=== PATIENT | male | born 1965 | race Caucasian/White ===

== ENCOUNTER 2018-02-14 00:31 | Emergency (ER) | payer OTHER ==
[~2018-02-14] VITALS: Ht 200.7 cm; Wt 113.0 kg
[~2018-02-14 00:31] MED LIST: ASPIR 8181 MG PO; ASPIRIN EC81 M1 PO; COUMADIN 5 MG TA5 M1 PO; COUMADIN7.5 MG PO; ENOXAPARIN100 MG/11 SUBQ; HYDROCODON-ACE1 EAC7 PO; HYDROCODONE-AP1 EAC6 PO; KEFLEX500 MG PO; LUNESTA1 MG PO; LUNESTA3 MG PO; MULTIVITAMINS PO; NOHOMEMEDICATIONS; NORCO 5-325 TA1 EACH PO; OXYCODONE HCL 55 MG PO; PRILOSEC 20 MG20 MG PO; PROAIR HFA8.5 GM IH; ROCEPHIN 11 GM/1001 IV; SINGULAIR 10 MG10 M1 PO; TRAMADOL 50 MG50 MG PO; UNKNOWN ABX; XARELTO15 MG PO
[2018-02-14] MEDS ORDERED: COUMADIN 5 MG TA5 M1 PO (00:45)
[2018-02-14] MEDS ORDERED: GABAPENTIN 100100 MG PO (00:46)
[2018-02-14] MEDS ORDERED: SYMBICORT160 MCG/4. INH (00:46)
[2018-02-14] MEDS ORDERED: TYLENOL EXTRA500 MG PO (00:47)
[2018-02-14] MEDS ORDERED: VITAMIN D250000 UNIT PO (00:47)
[2018-02-14 01:28] LABS: ABSOLUTE EOSINOPHILS 0.1 thou/uL (0.0-0.7); ABSOLUTE LYMPHOCYTES 1.9 thou/uL (0.8-5.3); ABSOLUTE NEUTROPHILS 6.4 thou/uL (1.6-8.1); BASOPHILS 0.4 %; EOSINOPHILS 0.7 %; HEMATOCRIT 44.3 % (42.0-52.0); LYMPHOCYTES 20.4 %; MCHC 33.9 g/dL (28.0-37.0); MCV 91.2 fL (80.0-100.0); MONOCYTES 10.6 %; MPV 7.3 fl. (7.2-11.1); NUCLEATED RBCS 0 /100WBC; PLATELET COUNT* 192 thou/uL (150-400); POLYS 67.9 %; RBC 4.86 mil/uL (4.50-6.00); RDW-CV 13.4 % (10.5-14.5); WBC 9.4 thou/uL (4.0-11.0)
[2018-02-14 01:33] LABS: APTT 47.8 Seconds (25.0-31.3); INR 1.8; PROTIME 18.8 Seconds (9.20-11.50)
[2018-02-14 01:45] LABS: CALCIUM 8.6 mg/dL (8.5-10.1); CREATININE 0.9 mg/dL (0.6-1.3); POTASSIUM 3.9 mmol/L (3.5-5.1)
[2018-02-14 01:50] LABS: ALBUMIN 4.1 g/dL (3.4-5.0); TOTAL BILIRUBIN 0.3 mg/dL (<0.1-1.0); TOTAL PROTEIN 7.3 g/dL (6.4-8.2)
[2018-02-14] MEDS ORDERED: NORCO 5-325 TA1 EACH PO (04:22)
[2018-02-14] MEDS ORDERED: MEDROLDOSEPACK PO (04:22)
[2018-02-14 04:42] VITALS: BP 124/84
== END 2018-02-14 04:43 | disposition home or self-care (01) ==
LOC: M.ERS 00:31
PROVIDERS: Personal Emergency Response Attendant
DX: S83.8X2A Sprain of other specified parts of left knee, initial encounter (principal); K21.9 Gastro-esophageal reflux disease without esophagitis; Z88.8 Allergy status to other drugs, medicaments and biological substances; X58.XXXA Exposure to other specified factors, initial encounter; Y93.89 Activity, other specified; Y92.89 Other specified places as the place of occurrence of the external cause; Y99.8 Other external cause status

== ENCOUNTER 2018-02-19 15:56 | Inpatient (IN) | payer OTHER ==
[~2018-02-19] VITALS: Ht 200.7 cm; Wt 111.1 kg
[~2018-02-19 15:56] MED LIST changes: +GABAPENTIN 100100 MG PO; +MEDROLDOSEPACK PO; +SYMBICORT160 MCG/4. INH; +TYLENOL EXTRA500 MG PO; +VITAMIN D250000 UNIT PO
[2018-02-19 16:06] VITALS: BP 138/90
[2018-02-19 16:51] LABS: ABSOLUTE EOSINOPHILS 0.1 thou/uL (0.0-0.7); ABSOLUTE MONOCYTES 1.2 thou/uL (0.0-1.2); ABSOLUTE NEUTROPHILS 7.5 thou/uL (1.6-8.1); BASOPHILS 0.4 %; EOSINOPHILS 0.5 %; HEMATOCRIT 45.4 % (42.0-52.0); HEMOGLOBIN 15.8 gm/dL (14.0-18.0); LYMPHOCYTES 18.5 %; MCH 31.4 pg (26.0-34.0); MCHC 34.8 g/dL (28.0-37.0); MCV 90.2 fL (80.0-100.0); MONOCYTES 11.4 %; MPV 7.1 fl. (7.2-11.1); NUCLEATED RBCS 0 /100WBC; PLATELET COUNT* 234 thou/uL (150-400); POLYS 69.2 %; RBC 5.03 mil/uL (4.50-6.00); RDW-CV 13.1 % (10.5-14.5); WBC 10.9 thou/uL (4.0-11.0)
[2018-02-19 17:01] LABS: CALCIUM 8.9 mg/dL (8.5-10.1); CREATININE 0.9 mg/dL (0.6-1.3)
[2018-02-19 17:05] LABS: TOTAL BILIRUBIN 0.6 mg/dL (<0.1-1.0); TOTAL PROTEIN 7.8 g/dL (6.4-8.2)
[2018-02-19 18:03] LABS: ESR (SEDRATE) 4 mm/hr (0-20)
[2018-02-19 19:27] VITALS: BP 119/72
[2018-02-19 23:25] VITALS: BP 147/84
--- NOTE | 2018-02-19 23:44 | NUR ---
PATIENT ARRIVED ON UNIT FROM ER AT 1999. COMPLETED ADMISSION ASSESSMENT AND HISTORY. FALL CONTRACT SIGNED. VITAL SIGNS AND SPO2 STABLE. IV CLEAN, FLUIDS INFUSING. PAIN MEDS GIVEN, PAIN SUBSIDED. NEW ICE PACK PLACED ON KNEE. NPO AFTER MIDNIGHT. NO NAUSEA AND VOMITING. BLOOD THINNERS HELD PER ORDER. SCD'S PLACED. COMPLETED HOURLY ROUNDING. CALL LIGHT WITHIN REACH. WILL CONTINUE TO MONITOR.
[2018-02-20] VITALS: BP 135/88
--- NOTE | 2018-02-20 04:37 | NUR ---
PATIENT REMAINED ALERT AND ORIENTED X'S 4. VITAL SIGNS AND SPO2 STABLE. IV CLEAN, FLUIDS INFUSING. PAIN WELL CONTROLLED WITH PAIN MEDS PIGGYBACKED Q.2. BED SEED COLLECTOR PLACED. SCD'S IN PLACE. NPO. NO NAUSEA AND VOMITING. COMPLETED HOURLY ROUNDING. CALL LIGHT WITHIN REACH. WILL CONTINUE TO MONITOR.
[2018-02-20 07:45] VITALS: BP 125/83
[2018-02-20 10:03] LABS: INR 1.4; PROTIME 14.2 Seconds (9.20-11.50)
--- NOTE | 2018-02-20 15:23 | NUR ---
SPOKE WITH PT.AND . HIS PARENTS WERE AT BEDSIDE BUT PT. SAID THEY COULD STAY. INTRODUCED ROLE OF CM. HE LIVES AT HOME WITH HIS . IS USUALLY INDEPENDENT AT HOME. HE SAID THEY (THE DRS.) MAY HAVE TO DO SURGERY DEPENDING ON CXS. TOLD HIM I HAVE FAXED INFORMATION TO IV DRUG CO TO CHECK HIS BENEFITS, IN CASE HE WOULD NEED IV ANTIBIOTICS AT HOME. HE WAS OK WITH THIS. SAID HE HAD HOME IVAB BACK IN 2014. IN COMPUTER CHARTING IT SHOWS HE USED [facility] DRUG [facility].-NOW CALLED [facility]. CM FAXED FACE SHEET/H&P/MED LIST TO [facility] [phone]. CM WILL FOLLOW.
[2018-02-20 16:00] VITALS: BP 130/77
[2018-02-20 20:00] VITALS: BP 129/73
--- NOTE | 2018-02-20 20:28 | NUR ---
ALERT AND ORIENTED X4. IV IS PATENT AND INFUSING. PAIN BEING MANAGED WITH PO AND IV PAIN MEDICATION. DENIES NAUSEA. ALIYAH HOSE IN PLACE BILATERALLY. CHENG WRAP TO LEFT KNEE. VSS ON ROOM AIR. HOURLY ROUNDS HAVE BEEN MAINTAINED THROUGHOUT SHIFT CALL LIGHT IS WITHIN REACH. NURSING WILL CONTINUE TO MONITOR.
[2018-02-21 04:00] VITALS: BP 130/88
--- NOTE | 2018-02-21 06:23 | NUR ---
ASSESSMENT: PT REMAIN ALERT AND ORIENT TIMES FOUR. OLMOS. C/O PAIN IN LEFT KNEE S/P ASPIRATION. PRN PAIN MEDICATIONS GIVEN SCHEDULED. ALSO, C/O NAUSEA, ZOFRAN GIVEN TWICE THIS SHIFT WITH COMPLETE RELIEF. LEFT KNEE DRESSING D/I...NOTE A SMALL AMT OF DRY BLOOD UNDERNEATH DRESSING. UO ADEQUATE. HOLDING ANTICOAGS. NPO AT [place] FOR POSSIVE SURGERY PENDING CULTURE RESULTS. LAC IV PATENT WITH IVF INFUSING WITH OUT DIFFICULT. SLOW PROGRESS TOWARDS DC GOALS, WILL CONTINUE TO MONITOR.
[2018-02-21 08:20] VITALS: BP 124/83
--- NOTE | 2018-02-21 11:17 | NUR ---
CLARIFIED WITH DR. MABRY THAT DVT/PE HEPARIN THERAPY SHOULD BE ORDERED RATHER THAN CARDIOLOGY THERAPY.
[2018-02-21 12:53] VITALS: BP 135/88
--- NOTE | 2018-02-21 13:42 | NUR ---
HEPARIN GTT STARTED AT 1315. ORTHOPEDIC RESIDENT JUST CALLED STATING PATIENT WILL GO TO OR AT 1515. ORDERS TO TURN HEPARIN GTT OFF AT 1415. PAGED DR. MABRY TO NOTIFY HIM OF SURGERY- AWAITING RETURN CALL AT THIS TIME.
[2018-02-21 13:52] VITALS: BP 135/88
--- NOTE | 2018-02-21 13:55 | NUR ---
SAID TO STOP THE HEPARIN GTT, PATIENT WILL RESTART HOME ANTICOAGULATION 24 HOURS POST OP.
--- NOTE | 2018-02-21 14:02 | NUR ---
HEAPRIN GTT STOPPED AT THIS TIME
--- NOTE | 2018-02-21 15:33 | EKG ---
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
[2018-02-21 15:58] VITALS: BP 135/88
--- NOTE | 2018-02-21 16:18 | IN ---
[address] [address] INTERIM NOTE Name: BOBVEE Sima Room: [address] IN M.R.#: [id number] Admission: 02/19/18 Attend Phys: Dale Kim MD Discharge: Date of : 63 Report #: [id number] CC: [facility] physician/PCP Dale Kim DATE OF SERVICE: 02/20/2018 The patient is evaluated, chart and x-rays are reviewed. The patient developed what appears to be hemarthrosis to his left knee, which he has had a previous total knee replacement on 2013. He denies any significant trauma recently. He does have a lengthy history of trauma and debility. He has had a recent surgery to his low back, which I do not have records on at this time that states he had instrumentation. This was done approximately in 04/2017. Recently, he has had some epidurals he states in the last couple of months with no significant results, but some improvement. 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 On clinical exam today, he has no apparent infection from a clinical standpoint; however, he has been on steroids in the recent past and he is on antibiotics at this time. I therefore have to be very careful about his immune response, may be significantly diminished. The patient does not have significant white cell count elevation; however, we do not have any laboratory data back on his fluid aspiration from his left knee from yesterday available to us, not even the Gram stain as of yet. The fluid was described as blood indicating hemarthrosis. This may simply be hemarthrosis secondary to Coumadin usage and may not be an infection process at all. The patient did have some pain; however, this would be expected with the increased fluid and pressure in the knee. This gentleman does not tolerate pain well even after his total joint replacement. We had some difficulty getting him to move the knee and progress. The patient understands that if the laboratory data comes back as a potential infection, he will need an arthrotomy, possible irrigation, debridement, polyethylene exchange and Bactisure washout versus a staged revision total knee arthroplasty for septic total knee. Risks and complications of all these procedures including watchful waiting have been discussed in detail with the patient. He understands. He has some serious concerns regarding paying for the procedures and the hospital stay as he states he has been fired from his work back after his total joint due to inability to return to work because of his back and that he no longer has insurance other than [employer]. I have told him a very straightforward that I will do whatever I can do to help him in anyway and I will not be doing any of my treatments based upon insurance coverage, but what is the recommended best treatment for him and he can decide how he wished to proceed obviously at that point. All questions are answered. We will await the results of his testing. Thank you for allowing me to see this patient. <ELECTRONICALLY SIGNED> By: Maco Recinos DO 02/21/18 1618 0940 [id number] Recinos DO /meghan
--- NOTE | 2018-02-21 18:08 | NUR ---
PT WAS NPO FOR POTENTIAL PROCEDURE TODAY, PT WAS PUT ON HEPARIN DRIP, SURGERY THEN CALLED AND STATED THEY WERE GOING TO GO IN AND CLEAN. HEPARIN DRIP DISCONTINUED. PT HAS BEEN IN SURGERY SINCE AND HAS NOT RETURNED BACK TO THIS UNIT. WILL CONTINUE TO MONITOR.
[2018-02-21 19:55] VITALS: BP 117/81
[2018-02-21 22:14] LABS: BF RBC 3629094 /mm3; TOTAL CELL COUNT 5090 /mm3
[2018-02-21 22:19] LABS: TOTAL VOLUME 20 ml
[2018-02-21 22:54] LABS: BF EOSINOPHILS 1 %; BF LYMPHOCYTES 23 %; BF MONOCYTES 17 %; BF POLYS 59 %; SOURCE L.KNEE
[2018-02-21 22:56] LABS: COLOR BLOODY
[2018-02-21 22:57] LABS: CLARITY CLOUDY
[2018-02-22 00:08] VITALS: BP 121/74
[2018-02-22 04:03] LABS: HEMOGLOBIN 13.1 gm/dL (14.0-18.0)
[2018-02-22 04:09] VITALS: BP 132/79
--- NOTE | 2018-02-22 05:00 | NUR ---
PATIENT RETURNED TO UNIT FROM PACU AT 1954 IN STABLE CONDITION. ALL MEDS PER ORDERS. PATIENT REPORTING GOOD PAIN MANAGEMENT WITH BOTH ORAL AND IV MEDS PROVIDED. PREVENA WOUND VAC PRESENT AND FUNCTIONING. FLUIDS AND ANTIBIOTICS PER ORDERS. AFEBRILE. VITAL SIGNS STABLE. CONTINUE TO MONITOR.
--- NOTE | 2018-02-22 07:26 | NUR ---
CALL TO ANSWERING SERVICE OF DR. GUAN WITH RETURN CALL. UPDATE ON PATIENT STATUS AND CURRENT ANTIBIOTICS. DR. GUAN STATES HE WILL SEE PATIENT LATE MORNING. MESSAGE ALSO SENT TO HOSPITALIST REGARDING RESTART OF HOME ANTI-COAGULANTS.
--- NOTE | 2018-02-22 07:47 | NUR ---
CALLED BACK REGARDING ANTICOAGULATION, AND THE PLAN IS TO START IT TONIGHT.
[2018-02-22 09:40] VITALS: BP 115/79
[2018-02-22 16:57] VITALS: BP 137/76
--- NOTE | 2018-02-22 17:15 | NUR ---
DISCUSSED WITH EARLIER. HE SAID HE FEELS PT.WILL PROBABLY NOT NEED IV ANTIBIOTICS AT DISCHARGE. OBTAINED BENEFITS FROM [facility]. WILL NOT DISCUSS BENEFITS WITH PT.UNLESS IT TURNS OUT HE WILL NEED THEM.
--- NOTE | 2018-02-22 18:11 | NUR ---
PT REMAINED ALERT AND ORIENTED THIS SHIFT. PT HAS C/IO PAIN AND OXY IR GIVEN WELL SCHEDULED TRAMADOL. PT HAD 2 IV'S START OF SHIFT, R AC IV CAME OUT DURING SHOWER. LEFT AC IV WAS REMOVED DUE TO LEAKING OF FLUIDS. NEW IV PLACED BY IV NURSE JAMES AND PLACED IN LEFT FOREARM. IV VANC AND ZOSYN ARE BEING GIVEN, FLUIDS DC. ANTICOAGULANT THERAPY RESTARTED THIS AFTERNOON. CALL LIGHT IN REACH. HOURLY ROUNDING COMPLETED. BED ALARM ON. WILL CONTINUE TO MONITOR.
[2018-02-22 21:00] VITALS: BP 121/72
[2018-02-23] VITALS: BP 123/77
[2018-02-23 04:00] VITALS: BP 104/63; BP 115/55; BP 127/74
[2018-02-23 04:22] LABS: HEMATOCRIT 33.7 % (42.0-52.0); HEMOGLOBIN 11.5 gm/dL (14.0-18.0)
--- NOTE | 2018-02-23 04:34 | NUR ---
PATIENT HAS REMAINED ALERT AND ORIENTED X 4 THROUGHOUT THE SHIFT AND RESTING QUIETLY ON HOURLY ROUNDS. UP WITH CGA, GAIT BELT AND WALKER. PREVENA WOUND VAC TO LEFT KNEE INCISION FUNCTIONING, NO DRAINAGE. PAIN CONTROL Q3H TO FAIRLY GOOD EFFECT. VITAL SIGNS STABLE WITH LOW-GRADE FEVER. ANTIBIOTICS PER ORDERS. VOIDS PER URINAL. PASSING GAS. DECLINED BOWEL INTERVENTION DUE TO NERVE/CONTROL ISSUES. SURGICAL FLUID CULTURES PENDING. CONTINUE TO MONITOR.
[2018-02-23 07:50] VITALS: BP 127/78
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
[2018-02-23 13:09] LABS: BODY FLUID PROTEIN 8.7 g/dL (())
[2018-02-23 14:00] VITALS: BP 141/81
[2018-02-23 16:00] VITALS: BP 138/84
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
[2018-02-23 20:46] VITALS: BP 123/78
--- NOTE | 2018-02-24 04:06 | NUR ---
PATIENT REMAINS ALERT AND ORIENTED. PAIN CONTROLLED WITH OXYIR AND SCHEDULED TRAMADOL. VOIDING LARGE AMOUNTS PER URINAL. IV ANTIBIOTICS INFUSED ORDERED. PREVENA WOUND VAC IN PLACE. SCD'S/TEDS. VSS. RA SAT 99%. PATIENT SLEPT INTERMITTENTLY. FALL PRECAUTIONS IN PLACE. CALL LIGHT WITHIN REACH. WILL CONTINUE TO MONITOR.
[2018-02-24 04:35] LABS: ABSOLUTE BASOPHILS 0.1 thou/uL (0.0-0.2); ABSOLUTE EOSINOPHILS 0.3 thou/uL (0.0-0.7); ABSOLUTE LYMPHOCYTES 1.8 thou/uL (0.8-5.3); ABSOLUTE MONOCYTES 0.8 thou/uL (0.0-1.2); ABSOLUTE NEUTROPHILS 4.5 thou/uL (1.6-8.1); BASOPHILS 0.7 %; HEMATOCRIT 33.3 % (42.0-52.0); HEMOGLOBIN 11.5 gm/dL (14.0-18.0); LYMPHOCYTES 24.5 %; MCH 31.5 pg (26.0-34.0); MCHC 34.6 g/dL (28.0-37.0); MCV 91.3 fL (80.0-100.0); MONOCYTES 10.5 %; MPV 6.7 fl. (7.2-11.1); NUCLEATED RBCS 0 /100WBC; PLATELET COUNT* 246 thou/uL (150-400); POLYS 60.3 %; RBC 3.64 mil/uL (4.50-6.00); WBC 7.4 thou/uL (4.0-11.0)
[2018-02-24 04:51] LABS: PROTIME 10.2 Seconds (9.20-11.50)
[2018-02-24 04:52] LABS: CALCIUM 8.6 mg/dL (8.5-10.1); CREATININE 0.8 mg/dL (0.6-1.3); POTASSIUM 3.9 mmol/L (3.5-5.1)
--- NOTE | 2018-02-24 06:25 | NUR ---
HOURLY ROUNDING COMPLETED
--- NOTE | 2018-02-24 07:25 | OP ---
[address] [address] OPERATIVE REPORT Name: VEE ROJAS Room: [address] IN M.R.#: [id number] Admission: 02/19/18 Attend Phys: Dale Kim MD Discharge: Date of : 63 Report #: [id number] THIS REPORT FOR: //name// CC: [facility] physician/PCP Dale Kim DATE OF SERVICE: 02/21/2018 PREOPERATIVE DIAGNOSIS: Left knee effusion, concern for prosthetic joint infection. POSTOPERATIVE DIAGNOSIS: Left knee hemarthrosis, necrotic synovitis. SURGEON: Maco Recinos DO. RETAIL OPERATIONS SPECIALIST: Dameon Mosquera DO; Eloy Mendez, 4; Buck Cannon MS4. OPERATION PERFORMED: Left knee incision and debridement with pulse lavage, irrigation using the Bactisure system from [employer] as well as excisional debridement of synovitis down to bone. Evacuation of left knee hematoma and exchange of polyethylene liner. ANESTHESIA: General. ESTIMATED BLOOD LOSS: 200 mL. SPECIMENS REMOVED: Tissue samples from suprapatellar pouch and infrapatellar pouch, left knee aspirate and tissue samples from medial and lateral gutters. COMPLICATIONS: None. CONDITION: The patient is stable to PACU. INDICATIONS FOR PROCEDURE: The patient is a pleasant 52-year-old male who unfortunately presented to the [facility] on 02/19/2018. He was being seen for left knee pain. He had a previous total knee arthroplasty done by Dr. Maco Recinos in 2013, said the left knee pain started about 6 days prior on Tuesday. He was seen in the Emergency Room, found to be negative for DVT via Doppler methodology. He was sent home on a Medrol Dosepak. Pain continued to progress and was unrefractory to conservative measures. Severe pain with any attempted motion and weightbearing, prompting his readmission. The patient states he did not feel fever or chilled, was not having any pain issues with the knee prior to the previous week, has not had any recent infections or dental work that he can recall. He did have a series of epidural steroid injections for low back pain in mid January. Denies any falls, injuries or inciting events of the knee that he can recall. [place] aspiration [place] [address] OPERATIVE REPORT Name: BOBVEE Room: [address] IN [facility].#: [id number] Admission: 02/19/18 Attend Phys: Dale Kim MD Discharge: Date of : 63 Report #: [id number] Gram stain with many white blood cells. Cultures are pending. The patient did have elevated inflammatory markers, CRP had elevated up to 57 and ESR to 12. Decision and recommendation was made to the patient to formally take him back to the operating room for formal incisional and irrigational debridement of the left knee as well as an anticipated polyethylene exchange. Expressed the alternatives, benefits, risks of the aforementioned including but not limited to damage to neurovascular structures, continuation of pain, spread of infection, possible need for repeat surgery in the future, possible explantation of hardware and long-term use of intravenous antibiotics and their possible sequelae, postoperative wound healing complications, and any other imponderables secondary to being taken back to the general anesthesia. The patient expressed understanding of the aforementioned and wished to proceed. DESCRIPTION OF PROCEDURE: The patient was met in the preoperative bay, correct side was marked. He was then taken back to the operative suite and placed supine on a well-padded table, given the benefit of general anesthesia, after which the left lower extremity was placed in a well-padded tourniquet at the proximal thigh, which was ultimately not insufflated during the procedure. Left lower extremity was sterilely prepped and draped in the normal standard fashion. Timeout was performed, which the correct patient, side, site, and procedure to be performed as well as preoperative antibiotics in the form of withstanding vancomycin was declared and agreed upon by all in participation at which point the procedure was begun. Left knee was incised and dissected down to the subcutaneous tissue, the capsule was not violated. An 18-gauge needle was used to aspirate approximately 35 mL of hemarthrosis from the joint. This did not have any purulent characteristics to it. It was mainly dark, stagnant blood after which our typical medial parapatellar arthrotomy was made. Immediately upon entering the joint, more hematoma, dark characteristics with a mix of coalesced coagulated blood and liquid blood was encountered; generalized synovitis with very dark necrotic characteristic was noted to be present throughout the entirety of the knee. Implants was in good stable condition. There were not any tonja purulent characteristics about the knee, although dark in characteristics, the tissue was not overly friable. Excisional debridement of the majority of these fibrous tissues was performed throughout all 3 compartments of the knee; polyethylene liner was removed after which 9 liters normal saline in combination with Bactisure pulse lavage system was used to irrigate through the joint thoroughly. Prior to the synovectomy, multiple tissue cultures were taken and sent for analysis including the medial and lateral gutters and suprapatellar and infrapatellar tissues. Then, the extensive synovectomy was performed throughout all 3 compartments with sharp excisional debridement down to bone. After that, the knee was thoroughly irrigated with 9 liters via the Bactisure pulse lavage system from [employer]. The posterior and pericapsular local block was administered. A new 10-mm vitamin E polyethylene liner was inserted. Knee was taken through range of motion and deemed to be stable, draped underneath the leg and all previously utilized instruments were then taken away from [place] [address] OPERATIVE REPORT Name: VEE ROJAS Sima Room: [address] IN [facility]#: [id number] Admission: 02/19/18 Attend Phys: Dale Kim MD Discharge: Date of : 63 Report #: [id number] exchanged. The capsule was then approximated with #1 Vicryls followed by 0 Stratafix. Skin was approximated with simple interrupted Monocryl and mitchell. The Prevena wound VAC placed over the incision. The patient was awoken from general anesthesia and taken back to the PACU in stable condition. All sponge and needle counts correct x 2. The patient will be continued on withstanding vancomycin and Infectious Disease consult will be put in for management as we await the results to determine the possible infectious nature of the knee or not. He will be bridged back on his withstanding warfarin and Lovenox until he is therapeutic. <ELECTRONICALLY SIGNED> By: Kd Prince DO 02/24/18 0725 [id number] Recinos DO /meghan
[2018-02-24 08:20] VITALS: BP 134/81
--- NOTE | 2018-02-24 15:30 | NUR ---
NOTED PT.ON LINEZOLID. CALLED HIS INSURANCE AT [phone]. SPOKE WITH ENGRAVING PRESS OPERATOR TO SEE IF DRUG WOULD BE COVERED UNDER HIS INSURANCE. SHE SAID PRESCRIPTION DRUGS ARE PAID FOR OUT OF POCKET BY PT.,INITIALLY, AND THEN PT.SUBMITS AMOUNT TO INSURANCE FOR REIMBURSEMENT. STILL AWAITING CX AND SENSITIVITIES.
[2018-02-24 16:03] VITALS: BP 121/74
--- NOTE | 2018-02-24 17:08 | PATH ---
[address] [address] PATHOLOGY RPT PROCEDURE Name: VEE ROJAS Room: [address] IN .R.#: [id number] Admission: 02/19/18 Date of : 63 Discharge: Report #: [id number] Path Case #: [id number] [facility] Accession Number: [id number] . 01 Material submitted: . PART A: SUPRA PATELLAR POUCH FOR BACTERIA/HPN PART B: INFRA PATELLAR TENDON TISSUE BACTERIA/HPN . 01 Clinical history: . Hemarthrosis left knee, possible septic knee . 02 Diagnosis: A. Suprapatellar pouch (left knee): - Benign synovium/fibrovascular/fibrofatty connective tissue with fresh hemorrhage, granular black pigment deposition, focal coagulative necrosis and variable numbers of neutrophils. See comment. . B. Infrapatellar tendon tissue (left knee): - Benign tendinous and fibrovascular/fibrofatty tissue with fresh hemorrhage, focal stromal hemosiderin deposition and less than 5 neutrophils per high power field on average. See comment. LBQ/02/24/2018 . 02 Comment: The suprapatellar pouch tissues (A) shows some areas of abundant neutrophils (greater than 10 per high power field) but only in areas of marked fresh hemorrhage and generally in a perivascular location and the remaining soft tissues, where there is not abundant fresh hemorrhage, shows minimal inflammation (less than 5 per high power field), and the significance of this finding is uncertain. A layer of synovium noted to have black granular pigment deposition compatible with prior knee prosthesis, shows less than 5 neutrophils per high power field. Neutrophils are difficult to find in the tissues from the infrapatellar tendon tissue specimen (B). Discussed with Dr. Maco Recinos on afternoon of 02/24/2018. (CORRINA/db; 02/24/18) . 02 Electronically signed: . Alton Arnold MD, Pathologist NPI- [id number] . 01 Gross description: . A. The specimen is received fresh, labeled "Vee Rojas, suprapatellar pouch," and additionally labeled on the requisition as, "left knee suprapatellar pouch". Received is a slight amount of pale escamilla possible soft tissue admixed with blood coagulum measuring 4.1 x 2.5 x 0.6 cm in aggregate dimensions. The specimen is submitted representatively in cassette A1. The remainder of [place] [address] PATHOLOGY RPT PROCEDURE Name: VEE ROJAS Room: [address] IN [facility].#: [id number] Admission: 02/19/18 Date of : 63 Discharge: Report #: [id number] Path Case #: [id number] refrigerator for possible additional studies if requested. . B. The specimen is received fresh, labeled "Vee Hyattk, infrapatellar tendon tissue," and additionally labeled on the requisition as, "left knee infrapatellar tendon tissue". Received are multiple segments of pale escamilla soft tissue measuring 2.1 x 1.5 x 0.7 cm in aggregate dimensions. The specimen is submitted representatively in cassette B1. The remainder of the specimen is placed into the refrigerator for possible additional studies if requested. (CAA; 02/23/2018) QAC/QAC . 02 Pathologist provided ICD-10: M67.90 . 02 CPT . 220466, [id number] Specimen Comment: A courtesy copy of this report has been sent to Specimen Comment: [phone], . Specimen Comment: Report sent to / DR CHRISTINA Performed at: [id number] [facility] [address], [place], [place] [id number] MD Arcadio Agudelo MD Phone: [phone] Performed at: 02 [facility] [address], [place], [place] [id number] MD Alton Arnold MD Phone: [phone]
--- NOTE | 2018-02-24 18:55 | NUR ---
PATIENT REMAINED ALERT AND ORIENTED TO SELF ONLY. VITAL SIGNS AND SP02 STABLE. NO IV ACCESS. PATIENT IS VERY CONFUSED AND GETS UP WITHOUT CALLING OUT FOR HELP. BED ALARM AND CHAIR ALARM THROUGHOUT SHIFT. PATIENT GOT UP MULTIPLE TIMES. NURSE AND AID CAUGHT HIM EACH TIME BEFORE HE WAS ABLE TO FULLY GET UP. TOLERATED DIET, NO NAUSEA AND VOMITING. COMPLETED HOURLY ROUNDING. CALL LIGHT WITHIN REACH, WILL CONTINUE TO MONITOR.
--- NOTE | 2018-02-24 19:23 | NUR ---
PATIENT REMAINED ALERT AND ORIENTED X'S 4. VITAL SIGNS AND SPO2 STABLE. IV INFILTRATED, DC'D. DID NOT START NEW IV. WAITING ON CULTURES TO DC PATIENT. TOLERATED DIET, NO NAUSEA AND VOMITING. PAIN WELL CONTROLLED WITH PAIN MEDS. VOIDED WITHOUT ISSUE. WOUND VAC, TEDS, SCD'S IN PLACE. COMPLETED HOURLY ROUNDING. CALL LIGHT [facility]. WILL CONTINUE TO [facility].
[2018-02-24 20:25] VITALS: BP 120/83
[2018-02-25 00:50] VITALS: BP 135/76
[2018-02-25 03:06] LABS: HEMATOCRIT 33.3 % (42.0-52.0); HEMOGLOBIN 11.4 gm/dL (14.0-18.0); MCH 30.8 pg (26.0-34.0); MCHC 34.2 g/dL (28.0-37.0); MCV 90.1 fL (80.0-100.0); MPV 6.4 fl. (7.2-11.1); RBC 3.69 mil/uL (4.50-6.00); RDW-CV 12.6 % (10.5-14.5); WBC 7.2 thou/uL (4.0-11.0)
[2018-02-25 03:26] LABS: ALBUMIN 2.9 g/dL (3.4-5.0); CALCIUM 8.5 mg/dL (8.5-10.1); CREATININE 0.7 mg/dL (0.6-1.3); POTASSIUM 3.8 mmol/L (3.5-5.1); TOTAL BILIRUBIN 0.4 mg/dL (<0.1-1.0); TOTAL PROTEIN 6.5 g/dL (6.4-8.2)
[2018-02-25 04:14] VITALS: BP 129/82
--- NOTE | 2018-02-25 05:28 | NUR ---
PATIENT ALERT AND ORIENTED X 4. VITALS STABLE. RA. UP SBA TO BATHROOM. VOIDING PER URINAL AT HS. LEFT KNEE WOUND VAC IN PLACE. PAIN CONTROLLED WITH PO MEDICATION. PROGRESSING WELL TOWARD DISCHARG GOALS. AWAITING CULTURES. HOURLY ROUNDS. NURSING WILL CONTINUE TO MONITOR.
[2018-02-25 07:45] VITALS: BP 127/73
--- NOTE | 2018-02-25 09:25 | NUR ---
SANDRA CALLED INTO PATIENTS PHARMACY PER DR. SCHAFER
[2018-02-25 09:43] LABS: PROTIME 10.6 Seconds (9.20-11.50)
[2018-02-25] MEDS ORDERED: TRAMADOL 50 MG50 MG PO (09:45)
[2018-02-25] MEDS ORDERED: OXYCODONE HCL 55 MG PO (09:45)
[2018-02-25 09:47] VITALS: BP 127/73
[2018-02-25] MEDS ORDERED: COUMADIN 2 MG TA2 M1 PO (10:11)
--- NOTE | 2018-02-25 12:04 | NUR ---
PT.TO BE DISCHARGED TODAY. HOME HEALTH THERAPY ORDERED. WHEN CM ENTERED ROOM, HE AND WERE DISCUSSING WITH PHYSICAL THERAPIST ON WHETHER HE SHOULD DO OUTPT.THERAPY OR HOME HEALTH. HE WILL DO OUTPT.THERAPY. HE WANTS TO GO TO [facility] ON [facility]. HE WILL CALL ON TUESDAY TO SET UP APPT., THEY ARE CLOSED TODAY. HE GOES TO 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 HE IS ON CHRONIC ANTICOAGULATION AT HOME AND HAS BEEN GOING THERE FOR AWHILE. RN HAD CALLED IN LOVENOX AND COUMADIN TO HIS PHARMACY. OFFERED TO CHECK AMOUNT OF LOVENOX FOR HIM. SAID HE HAS TO HAVE IT SO WE WILL MAKE IT HAPPEN. THEY HAD NO FURTHER QUESTIONS.
[2018-02-25 12:12] LABS: SOURCE L KNEE
--- NOTE | 2018-02-25 12:42 | NUR ---
PATIENT DISCHARGED TO HOME AT THIS TIME. OUTPATIENT PT CHOSEN. SCRIPTS GIVEN FOR GABAPENTIN,OXYIR,AND TRAMADOL. COUMADIN AND LOVENOX CALLED INTO PATIENTS PHARMACY. INR 1.0-PATIENT TO HAVE INR REDRAW ON TUESDAY. PATIENT WAS ON LOVENOX /COUMADIN BRIDGE PRIOR TO ADMISSION. PATIENT STATES HE ALREADY HAS APPT TUESDAY AT [facility] FOR INR CHECK. PATIENT AND SPOUSE VERBALIZE UNDERSTANDING OF DC INSTRUCTIONS. HAS WALKER FOR HOME. PREVENA WOUND VAC DC'D BY ORTHO RESIDENT PRIOR TO LEAVING WITH MEPILEX PLACED.
== END 2018-02-25 12:56 | disposition home or self-care (01) | DRG 488 ==
LOC: M.ERS 15:56 → M.ORTHSURG 17:31 → M.TBA-ER 17:31 → M.ORTHSURG 20:02
PROVIDERS: Family Medicine; Nurse Practitioner Family; Orthopaedic Surgery
DX: M00.9 Pyogenic arthritis, unspecified (principal); M25.062 Hemarthrosis, left knee; Z96.653 Presence of artificial knee joint, bilateral; M65.9 Synovitis and tenosynovitis, unspecified; M25.462 Effusion, left knee; K59.09 Other constipation; J45.909 Unspecified asthma, uncomplicated; K21.9 Gastro-esophageal reflux disease without esophagitis; Z88.8 Allergy status to other drugs, medicaments and biological substances; Z95.828 Presence of other vascular implants and grafts; Z87.81 Personal history of (healed) traumatic fracture; Z86.718 Personal history of other venous thrombosis and embolism; Z86.711 Personal history of pulmonary embolism; Z79.899 Other long term (current) drug therapy; Z23 Encounter for immunization

== ENCOUNTER 2018-03-05 18:37 | Inpatient (IN) | payer OTHER ==
[~2018-03-05] VITALS: Ht 182.9 cm; Wt 107.5 kg
[~2018-03-05 18:37] MED LIST changes: +COUMADIN 2 MG TA2 M1 PO
[2018-03-05 18:45] VITALS: BP 153/86
[2018-03-05 19:24] LABS: ABSOLUTE BASOPHILS 0.1 thou/uL (0.0-0.2); ABSOLUTE EOSINOPHILS 0.2 thou/uL (0.0-0.7); ABSOLUTE LYMPHOCYTES 1.7 thou/uL (0.8-5.3); ABSOLUTE MONOCYTES 0.7 thou/uL (0.0-1.2); ABSOLUTE NEUTROPHILS 7.5 thou/uL (1.6-8.1); BASOPHILS 0.7 %; EOSINOPHILS 1.8 %; HEMATOCRIT 37.2 % (42.0-52.0); HEMOGLOBIN 12.9 gm/dL (14.0-18.0); LYMPHOCYTES 16.3 %; MCH 30.8 pg (26.0-34.0); MCHC 34.6 g/dL (28.0-37.0); MONOCYTES 7.2 %; MPV 6.6 fl. (7.2-11.1); NUCLEATED RBCS 0 /100WBC; PLATELET COUNT* 342 thou/uL (150-400); RBC 4.18 mil/uL (4.50-6.00); RDW-CV 13.7 % (10.5-14.5); WBC 10.2 thou/uL (4.0-11.0)
[2018-03-05 19:43] LABS: CALCIUM 9.1 mg/dL (8.5-10.1)
[2018-03-05 19:48] LABS: ALBUMIN 3.8 g/dL (3.4-5.0); TOTAL BILIRUBIN 0.2 mg/dL (<0.1-1.0); TOTAL PROTEIN 7.7 g/dL (6.4-8.2)
[2018-03-05 20:18] LABS: INR 1.7; PROTIME 17.1 Seconds (9.20-11.50)
[2018-03-05 21:15] VITALS: BP 138/92
[2018-03-05 23:00] VITALS: BP 156/83
[2018-03-06] VITALS: BP 148/91
[2018-03-06 04:00] VITALS: BP 119/51; BP 149/68
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
[2018-03-06 07:20] VITALS: BP 140/85
[2018-03-06 11:07] LABS: HEMOGLOBIN 12.1 gm/dL (14.0-18.0); MCH 30.3 pg (26.0-34.0); MCHC 33.5 g/dL (28.0-37.0); MCV 90.4 fL (80.0-100.0); MPV 6.8 fl. (7.2-11.1); RBC 3.99 mil/uL (4.50-6.00); RDW-CV 13.9 % (10.5-14.5); WBC 8.1 thou/uL (4.0-11.0)
[2018-03-06 11:18] LABS: ALBUMIN 3.6 g/dL (3.4-5.0); CALCIUM 8.9 mg/dL (8.5-10.1); CREATININE 0.8 mg/dL (0.6-1.3); POTASSIUM 3.6 mmol/L (3.5-5.1); TOTAL BILIRUBIN 0.4 mg/dL (<0.1-1.0); TOTAL PROTEIN 7.3 g/dL (6.4-8.2)
--- NOTE | 2018-03-06 12:10 | NUR ---
Pt is A&O. Resides at home with his . Normally active and independent. Pt has knee replacement earlier this month, admitted with knee pain/swelling. Pt was set up with outpt PT post last dc. Pt has a walker at home that he can use if needed. No hx of HH or SNF. Goal is home at dc. CM following for disposition.
--- NOTE | 2018-03-06 15:43 | NUR ---
WOUND NURSE: PATIENT MANAGED BY ORTHO GROUP FOR POST OP KNEE SURGERY. PATIENT NOT SEEN BY THIS NURSE A RESULT. SPOKE WITH NURSEBTUCH CARING FOR PATIENT AND DISCUSSED OBTAINING DRESSING CHANGE ORDERS FROM ORTHO DOCTOR.
--- NOTE | 2018-03-06 19:35 | NUR ---
PATIENT PROGRESSING TOWARDS GOALS. PAIN CONTROLLED WITH PRN PAIN MEDICATIONS. HE DENIES ANY SOA. UP STANDBY ASSIST AND EDGE OF BED TO DANGLE THIS AFTERNOON. HE IS TOLERATING HIS DIET WELL WITHOUT ANY NAUSEA OR VOMITING. VOIDING PER URINAL. GOOD URINE OUTPUT. PLANNING FOR DC IN 1-2 DAYS PENDING PAIN CONTROL. HOURLY ROUNDING CHARTED. CALL LIGHT WITHIN REACH. WILL CONTINUE TO MONITOR.
[2018-03-06 21:00] VITALS: BP 123/78
[2018-03-07] VITALS: BP 114/77
[2018-03-07 07:30] VITALS: BP 127/75
--- NOTE | 2018-03-07 08:18 | NUR ---
PATIENT HAS SLEPT OFF AND ON DURING THE NIGHT. VSS ON RA. PAIN CONTROLLED WITH ORAL AND IV PAIN MEDICATION AND CHARTED. DRESSING TO LEFT KNEE IS C/D/I. IV IN LEFT WRIST-SL. PATIENT INSTRUCTED TO USE CALL LIGHT WHEN NEEDING ASSISTANCE. HOURLY ROUNDS MADE. WILL CONTINUE WITH PLAN OF CARE AND NURSING TO MONITOR.
--- NOTE | 2018-03-07 08:33 | NUR ---
RECEIVED PT CARE 0700. HE IS ALERT AND ORIENTED X4. VSS. HE DENIES ANY SOA. HE C/O LEFT KNEE PAIN, PRN PAIN MEDICATIONS GIVEN WITH GOOD RELIEF. AM ASSESSMENT CHARTED. MEDS PER MAR. PLANNING FOR DC TO HOME TODAY. PATIENT UPDATED ON PLAN OF CARE. WILL CONTINUE TO MONITOR.
[2018-03-07 08:53] LABS: INR 1.6; PROTIME 16.7 Seconds (9.20-11.50)
[2018-03-07 09:29] LABS: ABSOLUTE BASOPHILS 0.1 thou/uL (0.0-0.2); ABSOLUTE EOSINOPHILS 0.2 thou/uL (0.0-0.7); ABSOLUTE LYMPHOCYTES 1.5 thou/uL (0.8-5.3); ABSOLUTE MONOCYTES 0.7 thou/uL (0.0-1.2); ABSOLUTE NEUTROPHILS 4.8 thou/uL (1.6-8.1); BASOPHILS 0.7 %; EOSINOPHILS 2.3 %; HEMATOCRIT 37.4 % (42.0-52.0); HEMOGLOBIN 12.5 gm/dL (14.0-18.0); LYMPHOCYTES 20.3 %; MCH 30.3 pg (26.0-34.0); MCHC 33.3 g/dL (28.0-37.0); MCV 90.9 fL (80.0-100.0); MONOCYTES 9.9 %; MPV 7.3 fl. (7.2-11.1); NUCLEATED RBCS 0 /100WBC; PLATELET COUNT* 301 thou/uL (150-400); POLYS 66.8 %; RBC 4.11 mil/uL (4.50-6.00); RDW-CV 13.7 % (10.5-14.5); WBC 7.2 thou/uL (4.0-11.0)
[2018-03-07 10:56] LABS: ESR (SEDRATE) 15 mm/hr (0-20)
[2018-03-07 16:00] VITALS: BP 123/63
[2018-03-07 19:50] VITALS: BP 119/78
[2018-03-08] VITALS: BP 122/72
--- NOTE | 2018-03-08 02:39 | NUR ---
ASSUMED CARE OF PT AT 1900. PT IS ALERT AND ORIENTED. VSS. PERRLA. PT REPORTS ONGOING PAIN IN HIS LEFT LEG. PT RECIEVING DILAUDID AND OXYCODONE FOR PAIN. PT IS IN SINUS RYTHM ON THE TELEMETRY. PT IS RESTING COMFORTABLY IN BED. RESPIRATIONS ARE EVEN AND NONLABORED. WILL CONTINUE TO MONITOR PT.
[2018-03-08 07:20] VITALS: BP 123/72
--- NOTE | 2018-03-08 07:43 | NUR ---
RECEIVED PT CARE 0700. HE IS ALERT AND ORIENTED X4. VSS. NO SOA. UP STANDBY ASSIST IN ROOM. VOIDS PER URINAL. AM ASSESSMENT CHARTED. MEDS PER MAR. POTENTIAL DC TODAY, WAITING FOR HOSPITALIST TO ROUND ON PATIENT. PATIENT UPDATED ON PLAN OF CARE. CALL LIGHT WITHIN REACH. WILL CONTINUE TO MONITOR.
[2018-03-08 11:55] LABS: INR 1.5; PROTIME 15.4 Seconds (9.20-11.50)
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
[2018-03-08 13:26] VITALS: BP 123/72
[2018-03-08 15:15] VITALS: BP 108/81
[2018-03-08 19:30] VITALS: BP 120/74
[2018-03-09 00:28] VITALS: BP 132/71
--- NOTE | 2018-03-09 01:34 | NUR ---
ASSUMED CARE OF PT AT 1900. PT IS ALERT AND ORIENTED. UP WITH STAND BY ASSIST. VSS. PASTOR. PT REPORTS ONGOING PAIN IN HIS LEFT KNEE. PT IS SLEEPING QUIETLY IN BED. RESPIRATIONS ARE EVEN AND NONLABORED. WILL CONTINUE TO MONITOR PT.
[2018-03-09 08:30] VITALS: BP 140/76
--- NOTE | 2018-03-09 13:48 | NUR ---
PT CARE ASSUMED AT 0730. ALERT AND ORIENTED X4. SAT MAINTAINED IN RA. CALL LIGHT WITHIN REACH AND FALL PRECAUTIONS MAINTAINES. STATED PAIN ON LFT KNEE, MEDICATION GIVEN PER EMAR. PLAN OF CARE INFORMED, STATES UNDERSTANDING. WILL CONTINUE TO MONITOR.
--- NOTE | 2018-03-09 16:01 | NUR ---
PT ALERT AND ORIENTED X4. SAT MAINTAINED IN RA. STICHES REMOVED BY FROM THE KNEE. WOUND C/D/I. DRESSING APPLIED. PT CALLED FOR PAIN MEDICINE FREQUENTLY. DISCHARGE ORDER RECIEVED, EDUCATION GIVEN ON FOLLOW UP, MEDICATION AND ALIYAH HOSE. IV OUT. SOLAR INSTALLATION CREW SUPERVISOR REMOVED PRIOR TO DISCHARGE BECAUSE OF ME/SURG STATUS. PT DISCHARGE DOWN ON WHEELCHAIR WITH HIS .
--- NOTE | 2018-03-23 16:48 | CON ---
[address] [address] CONSULTATION Name: VEE ROJAS Room: [address] IN M.R.#: [id number] Admission: 03/05/18 Attend Phys: Dale Kim MD Discharge: 03/09/18 Date of : 63 Report #: [id number] THIS REPORT FOR: //name// CC: [facility] physician/PCP Dale Kim DICTATED BY: Abdirizak Zimmer DO DATE OF SERVICE: 03/06/2018 CHIEF COMPLAINT: Left knee pain and swelling. HISTORY OF PRESENT ILLNESS: The patient is a 52-year-old male who had a previous left total knee arthroplasty in 2013. Two weeks ago, he underwent an I and D with poly exchange and Bactisure irrigation of his knee. Cultures remain negative and are still negative to date. He had been doing quite well up until yesterday morning at the [facility] when he began to notice he had increased swelling and pain about his left knee. He denies any fever, chills or signs of systemic illness; however, he was concerned. He came to the Emergency Department where he was admitted and our services were consulted. He currently states that his knee pain is better than it was overnight; however, continues to have decreased range of motion secondary to the pain and swelling. Denies any numbness or tingling down the leg. Denies any new injuries or other acute complaints. PAST MEDICAL HISTORY: Anxiety, history of DVT, PE, history of cholecystitis, history of pelvic fracture. PAST SURGICAL HISTORY: 1. Left total knee arthroplasty. 2. Left knee I and D with poly exchange. FAMILY HISTORY: Noncontributory. SOCIAL HISTORY: Denies alcohol or tobacco use. MEDICATIONS: See MAR. ALLERGIES: PSEUDOEPHEDRINE. REVIEW OF SYSTEMS: A 12-point review of systems negative except for the above mentioned in HPI. PHYSICAL EXAMINATION: GENERAL: Alert and oriented, no acute distress. HEENT: Head is normocephalic, atraumatic. Eyes: [place] [address] CONSULTATION Name: VEE ROJAS Room: [address] IN .R.#: [id number] Admission: 03/05/18 Attend Phys: Dale Kim MD Discharge: 03/09/18 Date of : 63 Report #: [id number] Ears are normal. Mouth: Mucosa moist. NECK: Supple. CARDIOVASCULAR: Cap refill brisk. ABDOMEN: Soft. MUSCULOSKELETAL: Exam of the left knee demonstrates tense effusion about the left knee and sensation is intact without any drainage. There is minimal warmth, no erythema. His range of motion is approximately 5-30 degrees. Any further causes pain secondary to the swelling. He is neurovascularly intact distally. Superficial peroneal nerve, deep peroneal nerve, and tibial nerve sensation is intact. Cap refill is brisk. Dorsalis pedis pulse +2/4. IMPRESSION: 1. Left knee pain. 2. Status post incision and drainage and poly exchange, left knee. PLAN: At this time, reviewed previous cultures from surgery 2 weeks ago. They are still negative. He denies any fevers or chills. Upon admission, he has a slightly elevated ESR at 30, which would be expected 2 weeks after surgery. His CRP at admission is 3.3, which is reassuring. We believe this is likely hemarthrosis as he is on Lovenox and Coumadin; however, his INR is subtherapeutic at 1.7. We recommend a bulky Guillermo compressive dressing as well as rest, ice and elevation. Upon discharge, we want him to be in ALIYAH hose for compression about his knee. We also have changed his pain medicine regimen to oxycodone and Tylenol. He has a scheduled appointment with Dr. Recinos on 03/09/2018 and we will have him follow up at that time for further evaluation and staple removal. <ELECTRONICALLY SIGNED> By: Maco Recinos DO 03/23/18 1648 1552 [id number] Recinos DO /meghan
== END 2018-03-09 15:20 | disposition home or self-care (01) | DRG 556 ==
LOC: M.ERS 18:37 → M.TBA-ER 20:28 → M.2W 20:28
PROVIDERS: Internal Medicine; Physician Assistant Surgical
DX: M25.562 Pain in left knee (principal); K21.9 Gastro-esophageal reflux disease without esophagitis; Z96.652 Presence of left artificial knee joint; F41.9 Anxiety disorder, unspecified; Z95.828 Presence of other vascular implants and grafts; Z86.718 Personal history of other venous thrombosis and embolism; Z87.81 Personal history of (healed) traumatic fracture; Z88.8 Allergy status to other drugs, medicaments and biological substances; Z86.711 Personal history of pulmonary embolism

== ENCOUNTER → 2019-08-20 | Outpatient (CLI) | payer OTHER ==
[~2019-08-20] MED LIST changes: +ANORO ELLIPTA1 EACH INH; +CLARITIN10 M2 PO; +ELIQUIS5 MG PO; +FLOVENT HFA INH; +MULTIVITAMINS1 EAC7 PO; +NEURONTIN 300M300 M2 PO; +PROTONIX40 M4 PO; +QUESTRAN PACKET4 GM PO; +VENTOLIN HFA 1818 GM INH; +[UNRECOGNIZED DRUG - OTHER] PO
== END ==
LOC: M.PC 10:00
DX: M51.16 Intervertebral disc disorders with radiculopathy, lumbar region (principal); M47.26 Other spondylosis with radiculopathy, lumbar region; M79.605 Pain in left leg

== ENCOUNTER → 2020-03-24 | Outpatient (CLI) | payer MEDICARE, OTHER | LOC: M.PC 10:00 | PROVIDERS: ATTEND Physical Medicine & Rehabilitation | DX: M51.16 Intervertebral disc disorders with radiculopathy, lumbar region (principal); M25.551 Pain in right hip; M41.86 Other forms of scoliosis, lumbar region ==

== ENCOUNTER → 2020-03-27 | Outpatient (CLI) | payer MEDICARE, OTHER | LOC: M.MRI 10:57 | PROVIDERS: ATTEND Physical Medicine & Rehabilitation | DX: M51.16 Intervertebral disc disorders with radiculopathy, lumbar region (principal); M47.816 Spondylosis without myelopathy or radiculopathy, lumbar region; M48.061 Spinal stenosis, lumbar region without neurogenic claudication ==

== ENCOUNTER → 2020-05-05 | Outpatient (CLI) | payer MEDICARE, OTHER | LOC: M.PC 09:20 | PROVIDERS: ATTEND Physical Medicine & Rehabilitation | DX: M51.16 Intervertebral disc disorders with radiculopathy, lumbar region (principal); M47.816 Spondylosis without myelopathy or radiculopathy, lumbar region; M79.604 Pain in right leg; Z96.641 Presence of right artificial hip joint ==

== ENCOUNTER → 2020-05-22 | Outpatient (CLI) | payer MEDICARE, OTHER | LOC: M.MRI 12:58 | PROVIDERS: ATTEND Physical Medicine & Rehabilitation | DX: M51.24 Other intervertebral disc displacement, thoracic region (principal) ==

== ENCOUNTER 2020-08-28 21:39 | Emergency (ER) | payer MEDICARE, OTHER ==
[~2020-08-28] VITALS: Ht 200.7 cm; Wt 117.9 kg
[2020-08-28] MEDS ORDERED: LIPITOR 20 MG T20 M1 (21:53)
[2020-08-28] MEDS ORDERED: ANORO ELLIPTA1 EACH (21:54)
[2020-08-28 23:56] VITALS: BP 176/102
== END 2020-08-28 23:58 | disposition home or self-care (01) ==
LOC: M.ERS 21:39
DX: S80.02XA Contusion of left knee, initial encounter (principal); S00.83XA Contusion of other part of head, initial encounter; Z79.01 Long term (current) use of anticoagulants; Z96.651 Presence of right artificial knee joint; Z98.890 Other specified postprocedural states; Z96.652 Presence of left artificial knee joint; Z86.718 Personal history of other venous thrombosis and embolism; Z79.899 Other long term (current) drug therapy; Z88.8 Allergy status to other drugs, medicaments and biological substances; V94.89XA Other water transport accident, initial encounter; Y93.89 Activity, other specified; Y92.89 Other specified places as the place of occurrence of the external cause; Y99.8 Other external cause status

== ENCOUNTER → 2020-10-27 | Outpatient (CLI) | payer MEDICARE, OTHER ==
[~2020-10-27] MED LIST changes: +ANORO ELLIPTA1 EACH; +LIPITOR 20 MG T20 M1
== END ==
LOC: M.CT 07:44
PROVIDERS: ATTEND Internal Medicine
DX: K76.0 Fatty (change of) liver, not elsewhere classified (principal); R19.4 Change in bowel habit; R10.30 Lower abdominal pain, unspecified